=== PATIENT | female | born 1990 | race Two or more races ===

== ENCOUNTER 2024-03-30 02:13 | Outpatient (CLI) | payer OTHER ==
[~2024-03-30] VITALS: Ht 165.1 cm; Wt 88.0 kg
[2024-03-30] MEDS ORDERED: PRENA1 TRUE CO1 EACH (02:22)
[2024-03-30] MEDS ORDERED: IRON325 MG (02:22)
[2024-03-30] MEDS ORDERED: RINGERS SOLUTION,LACTATED 1,000 ML IV SCH (02:30)
[2024-03-30] MEDS ORDERED: MORPHINE SULFATE 4 MG/ML CARTRIDGE IV NR (02:30)
== END 2024-03-30 13:45 | disposition home or self-care (01) ==
LOC: EDBD 02:13 → OBS/DEL 02:13
PROVIDERS: ATTEND Obstetrics & Gynecology Gynecology
DX: O47.03 False labor before 37 completed weeks of gestation, third trimester (principal); Z3A.31 31 weeks gestation of pregnancy

== ENCOUNTER 2024-05-07 11:27 | Inpatient (IN) | payer OTHER ==
[~2024-05-07] VITALS: Ht 165.1 cm; Wt 92.5 kg
[~2024-05-07 11:27] MED LIST: IRON325 MG; PRENA1 TRUE CO1 EACH
[2024-05-07] MEDS ORDERED: TERBUTALINE SULFATE 1 MG/ML AMPUL SUBCUTANEO ONE ×2 (13:00→20:00)
[2024-05-07] MEDS ORDERED: RINGERS SOLUTION,LACTATED 1,000 ML IV SCH (13:00)
[2024-05-07 13:22] LABS: HEMATOCRIT 32.3 % (36.0-45.00); HEMOGLOBIN 10.9 g/dL (12.0-15.00); MEAN CELL VOLUME 79.2 fL (80.00-100.00); MEAN CORPUSCULAR HEMOGLOBIN 26.6 pg (27.00-32.0); MEAN CORPUSCULAR HGB CONC 33.6 g/dl (32.0-36.0); PLATELET COUNT 297 K/uL (150-450); RED BLOOD COUNT 4.08 M/uL (4.00-6.00); RED CELL DISTRIBUTION WIDTH 14.5 % (11.5-14.5)
[2024-05-07 13:47] LABS: INR 0.95; PARTIAL THROMBOPLASTIN TIME 29.9 SECONDS (22.0-34.0); PROTHROMBIN TIME 10.4 SECONDS (9.0-11.5)
[2024-05-07 14:13] LABS: BILIRUBIN TOTAL 0.24 mg/dL (0.3-1.2); CALCIUM 9.2 mg/dL (8.5-10.1); CREATININE SERUM 0.56 mg/dL (0.55-1.02); GFR 124.67; GLOBULINA 3.9 G/DL (2.4-3.5); POTASSIUM 4.08 mEq/L (3.5-5.1); TOTAL PROTEIN 6.9 gm/dL (6.4-8.2)
[2024-05-07] MEDS ORDERED: BETAMETHASONE ACETATE,SOD PHOS 30 MG/5 ML ML ONE (15:23)
[2024-05-07] MEDS ORDERED: BETAMETHASONE ACETATE,SOD PHOS 30 MG/5 ML ML IM STA (15:41)
[2024-05-07] MEDS ORDERED: MAGNESIUM SULFATE IN WATER 4 GM/100 ML PIGGYBACK IV NR (15:45)
[2024-05-07] MEDS ORDERED: MAGNESIUM SULFATE IN WATER 0.04 GM/ML IV.SOLN IV NR (15:45)
[2024-05-07] MEDS ORDERED: MAGNESIUM SULFATE IN WATER 500 ML IV NR (18:30)
[2024-05-07] MEDS ORDERED: TERBUTALINE SULFATE 1 MG/ML AMPUL ONE (19:40)
[2024-05-08] MEDS ORDERED: MAGNESIUM SULFATE IN WATER 500 ML IV SCH (00:45)
[2024-05-08] MEDS ORDERED: BETAMETHASONE ACETATE,SOD PHOS 30 MG/5 ML ML IM SCH (15:30)
[2024-05-08] MEDS ORDERED: METHYLERGONOVINE MALEATE 0.2 MG/ML AMPUL ONE (21:17)
[2024-05-08] MEDS ORDERED: OXYTOCIN 1,000 ML IV SCH (22:00)
[2024-05-08] MEDS ORDERED: IBUprofen 400 MG TABLET PO PRN (22:00)
[2024-05-08] MEDS ORDERED: MEPERIDINE HCL/PF 50 MG/ML VIAL IM PRN (22:00)
[2024-05-08] MEDS ORDERED: ERYTHROMYCIN BASE 1 GM TUBE OP ONE (22:45)
[2024-05-08] MEDS ORDERED: OXYTOCIN 10 UNITS/ML VIAL IV ONE (22:45)
[2024-05-09] MEDS ORDERED: OxyCODONE HCL/APAP UD (PERCOCET) PO PRN (12:00)
[2024-05-09 18:39] LABS: HEMATOCRIT 31.7 % (36.0-45.00); HEMOGLOBIN 10.8 g/dL (12.0-15.00); MEAN CELL VOLUME 80.1 fL (80.00-100.00); MEAN CORPUSCULAR HEMOGLOBIN 27.4 pg (27.00-32.0); MEAN CORPUSCULAR HGB CONC 34.1 g/dl (32.0-36.0); PLATELET COUNT 310 K/uL (150-450); RED BLOOD COUNT 3.96 M/uL (4.00-6.00); RED CELL DISTRIBUTION WIDTH 14.5 % (11.5-14.5)
== END 2024-05-10 14:23 | disposition home or self-care (01) | DRG 785 ==
LOC: NST 11:27 → OBS/DEL 11:27 → LDR 15:30 → OBS/DEL 15:30 → O/R 15:30 → OB/GYN 15:30 → O/R 05-08 20:43 → OB/GYN 05-08 21:51
PROVIDERS: ADMIT Obstetrics & Gynecology; ATTEND Obstetrics & Gynecology
PROC: 4A1HXCZ Monitoring of Products of Conception, Cardiac Rate, External Approach (ICD-10-PCS; 2024-05-07)
PROC: 0UB70ZZ Excision of Bilateral Fallopian Tubes, Open Approach (ICD-10-PCS; 2024-05-08)
PROC: 10D00Z1 Extraction of Products of Conception, Low, Open Approach (ICD-10-PCS; principal; 2024-05-08 20:15)
DX: O60.14X0 Preterm labor third trimester with preterm delivery third trimester, not applicable or unspecified (principal); O99.824 Streptococcus B carrier state complicating childbirth; O34.211 Maternal care for low transverse scar from previous cesarean delivery; Z3A.36 36 weeks gestation of pregnancy; Z37.0 Single live birth; Z30.2 Encounter for sterilization